=== PATIENT | male | born 1980 | race Two or more races ===

== ENCOUNTER → 2025-08-06 | Outpatient (CLI) | payer BC, SELFPAY ==
--- NOTE | 2025-08-06 11:00 | XR_ITS ---
Study: Abdomen ultrasound. INDICATION: Elevated transaminase 3 to 4 weeks ago. TECHNIQUE: Grayscale ultrasound with color flow Doppler. 102 images at 1053 hours 06 August 2025. FINDINGS: The gallbladder wall measures up to 3 mm thickness and there are no contained stones. The common bile duct measures 0.2 cm. The liver measures 18.2 cm in the midclavicular line and is diffusely hyperechoic with smooth contour. There is no cyst, solid mass or ectatic duct. Portal vein flow is toward the liver. The pancreas is seen in nearly its entirety and is hyperechoic. The size is normal. There is no focal lesion. The aorta is normal in caliber. The inferior vena cava is patent. The right kidney measures 10.8 x 6.1 x 6.4 cm with a 1.3 cm cortex. The left kidney measures 12.6 x 6.0 x 5.7 cm with a 2.0 cm cortex. There is retention of lobulations. The spleen measures 12.2 cm and is free from masses and cysts. Echogenicity is normal. There is no ascites. IMPRESSION: 1. Fatty liver. 2. Possible fatty infiltration and replacement of the pancreas.
== END | disposition home or self-care (01) ==
PROVIDERS: PCP Student in an Organized Health Care Education/Training Program; Referring Provider Student in an Organized Health Care Education/Training Program; Visit Provider Student in an Organized Health Care Education/Training Program
DX: K76.0 Fatty (change of) liver, not elsewhere classified (principal)
CPT/HCPCS: 76700